=== PATIENT | female | born 1965 | race Caucasian/White ===

== ENCOUNTER → 2017-04-23 | Outpatient (CLI) | payer OTHER ==
[~2017-04-23] MED LIST: CLONAZEPAM0.5 MG PO; LACTULOSE10 GM/15 M PO; NEURONTIN 300300 MG PO; SEROQUEL400 MG PO; TIZANIDINE HCL4 MG PO; ZYRTEC10 MG PO
== END ==
LOC: EMI 16:42
DX: M54.12 Radiculopathy, cervical region (principal)

== ENCOUNTER → 2017-04-30 | Outpatient (CLI) | payer OTHER | LOC: EMI 08:21 | DX: M54.12 Radiculopathy, cervical region (principal); M25.78 Osteophyte, vertebrae; M99.71 Connective tissue and disc stenosis of intervertebral foramina of cervical region | CPT/HCPCS: 72141 ==

== ENCOUNTER → 2020-11-22 | Outpatient (CLI) | payer MEDICARE ==
[~2020-11-22] MED LIST changes: +ACTONEL35 MG PO; +ALBUTEROL2.5 MG/3 M INH; +ATROVENT-HFA12.9 GM INH; +BACTRIM DS TAB1 EACH PO; +CITROMA296 ML PO; +CO Q-10100 MG PO; +DOXYCYCLINE HY100 MG PO; +ENULOSE10 GM/15 M PO; +FLAGYL500 MG PO; +FLONASE 0.05% N16 GM; +FLONASE ALLER15.8 ML; +IBUPROFEN600 MG PO; +INDERAL TAB 2020 MG PO; +KLONOPIN1 MG PO; +LAMOTRIGINE ER25 MG PO; +LEVOFLOXACIN500 MG PO; +LINZESS145 MCG PO; +LIPITOR TAB 1010 MG PO; +LIPITOR40 MG PO; +MELOXICAM15 MG PO; +MOBIC15 MG PO; +NAPROSYN EC 37375 MG PO; -NEURONTIN 300300 MG PO; +NEURONTIN800 MG PO; +NORCO 5-325 TA1 EACH PO; +OMNICEF 300 MG300 MG PO; +PREDNISONE 50 M50 MG PO; +PREDNISONE20 MG PO; +PREDNISONE50 MG PO; +PROTONIX40 MG PO; +PROVENTIL HFA6.7 GM INH; +ROBAXIN500 MG PO; +SINGULAIR10 MG PO; +SYMBICORT 160-1 INHA INH; +SYNTHROID100 MCG PO; +SYNTHROID112 MCG PO; +VENLAFAXINE H37.5 MG PO; +VENTOLIN HFA 66.7 GM INH; +VENTOLIN/PROVE0.5 ML INH; +VITAMIN B-121000 MCG PO; +VITAMIN D31250 MCG PO; +VITAMIN D35000 UNI1 PO; +Voltaren Gel 1 % TOP; +ZANAFLEX4 MG PO; +ZITHROMAX250 MG PO; +ZITHROMAX500 MG PO; +ZOLEDRONIC5 MG/100 M IV
[2020-11-22 12:52] LABS: HEMOGLOBIN 15.2 gm/dl (12.3-15.3); RED BLOOD COUNT 4.73 M/UL (4.00-5.10); WHITE BLOOD COUNT 7.5 K/UL (4.5-11.0)
[2020-11-22 13:10] LABS: BUN/CREATININE RATIO 18 (0-10)
== END ==
LOC: LAB 12:07
PROVIDERS: Nurse Practitioner Family
DX: D64.9 Anemia, unspecified (principal); J44.0 Chronic obstructive pulmonary disease with (acute) lower respiratory infection; R10.13 Epigastric pain; M54.5 Low back pain; E03.9 Hypothyroidism, unspecified; E53.8 Deficiency of other specified B group vitamins; E55.9 Vitamin D deficiency, unspecified; G89.29 Other chronic pain; Z87.09 Personal history of other diseases of the respiratory system
CPT/HCPCS: 36415; 71046; 80053; 80061; 82607; 84439; 84443; 85025

== ENCOUNTER → 2020-12-31 | Outpatient (CLI) | payer MEDICARE | LOC: LAB 07:23 | DX: F31.9 Bipolar disorder, unspecified (principal) | CPT/HCPCS: 36415; 84439; 84443 ==

== ENCOUNTER → 2021-02-15 | Day surgery (SDC) | payer MEDICARE | END | disposition home or self-care (01) | LOC: OR 06:05 | DX: Z12.11 Encounter for screening for malignant neoplasm of colon (principal); K57.30 Diverticulosis of large intestine without perforation or abscess without bleeding; I10 Essential (primary) hypertension; K22.70 Barrett's esophagus without dysplasia; E03.9 Hypothyroidism, unspecified; E78.5 Hyperlipidemia, unspecified; F17.210 Nicotine dependence, cigarettes, uncomplicated; K21.9 Gastro-esophageal reflux disease without esophagitis; F31.9 Bipolar disorder, unspecified; J44.9 Chronic obstructive pulmonary disease, unspecified; Z88.0 Allergy status to penicillin; Z82.49 Family history of ischemic heart disease and other diseases of the circulatory system; Z83.3 Family history of diabetes mellitus; Z20.822 Contact with and (suspected) exposure to COVID-19; Z86.010 Personal history of colon polyps | CPT/HCPCS: J2704; J7030 ==

== ENCOUNTER 2021-02-27 08:33 | Emergency (ER) | payer MEDICARE ==
[~2021-02-27 08:33] MED LIST changes: -BACTRIM DS TAB1 EACH PO; -FLAGYL500 MG PO
== END 2021-02-27 10:02 | disposition home or self-care (01) ==
LOC: ER1 08:33
DX: R07.0 Pain in throat (principal); J44.9 Chronic obstructive pulmonary disease, unspecified; Z88.0 Allergy status to penicillin; Z90.89 Acquired absence of other organs; F17.200 Nicotine dependence, unspecified, uncomplicated
CPT/HCPCS: 87081; 87880; 99283

== ENCOUNTER 2021-03-08 04:40 | Emergency (ER) | payer MEDICARE ==
[2021-03-08 05:06] LABS: HEMOGLOBIN 16.5 gm/dl (12.3-15.3); RED BLOOD COUNT 4.83 M/UL (4.00-5.10); WHITE BLOOD COUNT 9.6 K/UL (4.5-11.0)
[2021-03-08 05:22] LABS: BUN/CREATININE RATIO 23 (0-10)
[2021-03-08] MEDS ORDERED: BACTRIM DS TAB1 EACH PO (09:47)
[2021-03-08] MEDS ORDERED: FLAGYL500 MG PO (09:47)
== END 2021-03-08 11:36 | disposition home or self-care (01) ==
LOC: ER1 04:40
PROVIDERS: Family Medicine
DX: R91.1 Solitary pulmonary nodule (principal); E87.6 Hypokalemia; F41.9 Anxiety disorder, unspecified; F13.20 Sedative, hypnotic or anxiolytic dependence, uncomplicated; N39.0 Urinary tract infection, site not specified; J44.9 Chronic obstructive pulmonary disease, unspecified; Z88.0 Allergy status to penicillin; Z79.899 Other long term (current) drug therapy; F17.200 Nicotine dependence, unspecified, uncomplicated
CPT/HCPCS: 71045; 80053; 81001; 82550; 82553; 83690; 83874; 84484; 85025; 85379; 87077; 87086; 87186; 93005; 96374; 96375; 99285; J0696; J2060

== ENCOUNTER → 2021-05-23 | Outpatient (CLI) | payer MEDICARE ==
[~2021-05-23] MED LIST changes: +BACTRIM DS TAB1 EACH PO; +FLAGYL500 MG PO
[2021-05-23 07:19] LABS: HEMOGLOBIN 15.8 gm/dl (12.3-15.3); RED BLOOD COUNT 4.64 M/UL (4.00-5.10); WHITE BLOOD COUNT 8.2 K/UL (4.5-11.0)
[2021-05-23 09:13] LABS: BUN/CREATININE RATIO 34 (0-10)
== END ==
LOC: LAB 06:11
PROVIDERS: Nurse Practitioner Family
DX: R30.9 Painful micturition, unspecified (principal); D64.9 Anemia, unspecified; K22.70 Barrett's esophagus without dysplasia; M25.50 Pain in unspecified joint; F32.9 Major depressive disorder, single episode, unspecified; E78.5 Hyperlipidemia, unspecified; E03.9 Hypothyroidism, unspecified; R53.83 Other fatigue; R41.3 Other amnesia; R20.2 Paresthesia of skin; E53.8 Deficiency of other specified B group vitamins; E55.9 Vitamin D deficiency, unspecified
CPT/HCPCS: 36415; 80053; 80061; 81001; 82607; 84439; 84443; 85025

== ENCOUNTER → 2021-06-13 | Outpatient (CLI) | payer MEDICARE | LOC: KOH-I 06-06 10:45 | DX: R51.9 Headache, unspecified (principal); R41.3 Other amnesia | CPT/HCPCS: 70551 ==

== ENCOUNTER → 2021-06-22 | Outpatient (CLI) | payer MEDICARE | LOC: MAMO 05-12 11:00 | DX: Z12.31 Encounter for screening mammogram for malignant neoplasm of breast (principal) | CPT/HCPCS: 77063; 77067 ==

== ENCOUNTER → 2021-08-18 | Outpatient (CLI) | payer MEDICARE | LOC: CT 08-17 11:00 → US 10:15 → CT 11:30 | DX: R13.10 Dysphagia, unspecified (principal); R91.1 Solitary pulmonary nodule | CPT/HCPCS: 71260; 76536; Q9967 ==

== ENCOUNTER 2022-03-06 16:04 | Emergency (ER) | payer OTHER ==
[2022-03-06 17:15] LABS: HEMOGLOBIN 16.5 gm/dl (12.3-15.3); RED BLOOD COUNT 5.05 M/UL (4.00-5.10); WHITE BLOOD COUNT 9.5 K/UL (4.5-11.0)
[2022-03-06 19:05] LABS: BUN/CREATININE RATIO 27 (0-10)
[2022-03-06] MEDS ORDERED: LEVOFLOXACIN500 MG PO (19:39)
[2022-03-06] MEDS ORDERED: PREDNISONE 20 M20 MG PO (19:39)
[2022-03-06] MEDS ORDERED: BENZONATATE200 MG PO (19:43)
== END 2022-03-06 20:10 | disposition home or self-care (01) ==
LOC: ER1 16:04
PROVIDERS: Nurse Practitioner
DX: J44.0 Chronic obstructive pulmonary disease with (acute) lower respiratory infection (principal); J44.1 Chronic obstructive pulmonary disease with (acute) exacerbation; J18.9 Pneumonia, unspecified organism; Z20.822 Contact with and (suspected) exposure to COVID-19; E78.5 Hyperlipidemia, unspecified; F17.210 Nicotine dependence, cigarettes, uncomplicated; Z88.0 Allergy status to penicillin
CPT/HCPCS: 0240U; 36600; 71045; 80053; 81001; 82550; 82553; 82803; 83880; 84484; 85025; 93005; 94664; 94760; 96374; 99285; J2930

== ENCOUNTER 2022-05-29 09:48 | Inpatient (IN) | payer OTHER ==
[~2022-05-29] VITALS: Ht 167.6 cm; Wt 68.0 kg
[~2022-05-29 09:48] MED LIST changes: +BENZONATATE200 MG PO; +KLONOPIN0.5 MG PO; -KLONOPIN1 MG PO; -LIPITOR40 MG PO; +LIPITOR80 MG PO; +PREDNISONE 20 M20 MG PO; +PROAIR HFA8.5 GM INH; +SEROQUEL XR400 MG PO; -SEROQUEL400 MG PO; -SYNTHROID112 MCG PO; +SYNTHROID125 MCG PO
[2022-05-29 11:15] LABS: HEMOGLOBIN 15.4 gm/dl (12.3-15.3); RED BLOOD COUNT 4.84 M/UL (4.00-5.10); WHITE BLOOD COUNT 6.5 K/UL (4.5-11.0)
[2022-05-29 11:38] LABS: BUN/CREATININE RATIO 27 (0-10)
[2022-05-29] MEDS ORDERED: OXCARBAZEPINE300 MG PO (13:57)
[2022-05-29] MEDS ORDERED: PREDNISONE 20 M20 MG PO (13:58)
[2022-05-29] MEDS ORDERED: PROTONIX 40 MG40 M1 PO (13:58)
[2022-05-29] MEDS ORDERED: LEVOCETIRIZINE D5 MG PO (13:58)
[2022-05-29] MEDS ORDERED: DIVALPROEX SOD250 MG PO (13:59)
--- NOTE | 2022-05-29 23:38 | NUR ---
PT STATES THAT SHE NO LONGER TAKES DEPAKOTE. NOTIFIED MD AND RECIEVED ORDERS. WILL CONTINUT TO MONITOR.
[2022-05-30 06:01] LABS: HEMOGLOBIN 13.8 gm/dl (12.3-15.3); RED BLOOD COUNT 4.46 M/UL (4.00-5.10)
[2022-05-30 06:25] LABS: WHITE BLOOD COUNT 9.4 K/UL (4.5-11.0)
[2022-05-30 06:49] LABS: BUN/CREATININE RATIO 22 (0-10)
[2022-05-30] MEDS ORDERED: MEDROL DOSEPAK 24 MG PO (13:47)
--- NOTE | 2022-05-30 14:36 | NUR ---
PT ROOM AIR O2 SAT IS 87%
== END 2022-05-30 17:33 | disposition home or self-care (01) | DRG 177 ==
LOC: ER1 09:48 → CDU 13:18 → M/S 13:18
PROVIDERS: Emergency Medicine; ADMIT Internal Medicine
PROC: 8E0ZXY6 Isolation (ICD-10-PCS; principal; 2022-05-29)
PROC: XW033E5 Introduction of Remdesivir Anti-infective into Peripheral Vein, Percutaneous Approach, New Technology Group 5 (ICD-10-PCS; 2022-05-29)
PROC: 3E0333Z Introduction of Anti-inflammatory into Peripheral Vein, Percutaneous Approach (ICD-10-PCS; 2022-05-29)
DX: U07.1 COVID-19 (principal); J12.82 Pneumonia due to coronavirus disease 2019; J96.01 Acute respiratory failure with hypoxia; J43.9 Emphysema, unspecified; I10 Essential (primary) hypertension; E03.9 Hypothyroidism, unspecified; F41.9 Anxiety disorder, unspecified; M79.7 Fibromyalgia; Z87.891 Personal history of nicotine dependence; Z88.0 Allergy status to penicillin; Z80.9 Family history of malignant neoplasm, unspecified; Z82.49 Family history of ischemic heart disease and other diseases of the circulatory system; Z98.890 Other specified postprocedural states; Z28.310 Unvaccinated for COVID-19
CPT/HCPCS: 36415; 36600; 71045; 80048; 80053; 82550; 82553; 82728; 82803; 83036; 83540; 83550; 83605; 83735; 83880; 84100; 84484; 85025; 85379; 85652; 86140; 87040; 93005; 94640; 94664; 94760; 96374; 96375; 99285; J0248; J1100; J2405; J7030

== ENCOUNTER → 2022-07-17 | Outpatient (CLI) | payer OTHER ==
[~2022-07-17] MED LIST changes: +DIVALPROEX SOD250 MG PO; +LEVOCETIRIZINE D5 MG PO; +MEDROL DOSEPAK 24 MG PO; +OXCARBAZEPINE300 MG PO; +PROTONIX 40 MG40 M1 PO
== END ==
LOC: EXRD 14:19
DX: U07.1 COVID-19 (principal)
CPT/HCPCS: 71046